=== PATIENT | male | born 1970 | race African-American/Black ===

== ENCOUNTER 2020-10-12 09:57 | Emergency (ER) | payer OTHER ==
[2020-10-12 10:07] VITALS: BP 115/72; PULSE 79; TEMP 98; BMI 24.4
== END 2020-10-12 11:10 | disposition home or self-care (01) ==
LOC: JERFT 09:57
DX: S39.012A Strain of muscle, fascia and tendon of lower back, initial encounter (principal); S46.912A Strain of unspecified muscle, fascia and tendon at shoulder and upper arm level, left arm, initial encounter
CPT/HCPCS: 99281-25